=== PATIENT | male | born 1990 | race Caucasian/White ===

== ENCOUNTER 2019-02-14 10:31 | Emergency (ER) | payer SELFPAY ==
[~2019-02-14] VITALS: Ht 185.4 cm; Wt 88.6 kg
[2019-02-14] MEDS ORDERED: IBUP-1984 PO (12:25)
[2019-02-14 13:15] VITALS: BP 137/71
== END 2019-02-14 13:17 | disposition home or self-care (01) ==
LOC: ER 10:32
DX: S92.331A Displaced fracture of third metatarsal bone, right foot, initial encounter for closed fracture (principal); S92.321A Displaced fracture of second metatarsal bone, right foot, initial encounter for closed fracture; Z79.899 Other long term (current) drug therapy; W18.39XA Other fall on same level, initial encounter; Y93.89 Activity, other specified; Y92.89 Other specified places as the place of occurrence of the external cause; Y99.8 Other external cause status
CPT/HCPCS: 29515; 73630; 99283

== ENCOUNTER 2019-03-02 11:34 | Outpatient (CLI) | payer SELFPAY ==
[~2019-03-02 11:34] MED LIST: IBUP-1984 PO
== END 2019-03-02 12:42 | disposition home or self-care (01) ==
LOC: ORTHO 11:34
PROVIDERS: ATTEND Orthopaedic Surgery
DX: S62.390D Other fracture of second metacarpal bone, right hand, subsequent encounter for fracture with routine healing (principal); S62.392D Other fracture of third metacarpal bone, right hand, subsequent encounter for fracture with routine healing; X58.XXXD Exposure to other specified factors, subsequent encounter
CPT/HCPCS: 73630; G0463

== ENCOUNTER 2019-04-20 08:59 | Outpatient (CLI) | payer SELFPAY | END 2019-04-20 09:15 | disposition home or self-care (01) | LOC: ORTHO 08:59 | PROVIDERS: ATTEND Orthopaedic Surgery | DX: S92.331D Displaced fracture of third metatarsal bone, right foot, subsequent encounter for fracture with routine healing (principal); W17.89XD Other fall from one level to another, subsequent encounter | CPT/HCPCS: 73630; G0463 ==